=== PATIENT | female | born 1950 | race Caucasian/White ===

== ENCOUNTER → 2018-11-28 12:04 | Outpatient (CLI) | payer MEDICARE, OTHER ==
[~2018-11-28 12:04] MED LIST: GLUCOPHAGE XR750 MG PO; IPRAT-ALBUT 0.5-3 ML UPD; LEVOFLOXACIN500 MG PO; METHADONE10 MG/5 ML PO; MUCINEX DM ER1 EAC1 PO; NEURONTIN 300300 MG PO; PRAVACHOL20 MG PO; PROTONIX40 MG PO; TESSALON PERLE100 MG PO; TOPROL XL50 MG PO; TRIAMTERENE-HC1 EAC3 PO; [UNRECOGNIZED DRUG - OTHER]
== END | disposition home or self-care (01) ==
LOC: D.RAD 12:04
PROVIDERS: ATTEND Nurse Practitioner Family
DX: R05 Cough (principal); R06.02 Shortness of breath

== ENCOUNTER 2018-11-28 14:55 | Inpatient (IN) | payer MEDICARE, OTHER ==
[~2018-11-28] VITALS: Ht 165.1 cm; Wt 89.6 kg
[2018-11-28] MEDS ORDERED: TOPROL XL50 MG PO (14:59)
[2018-11-28] MEDS ORDERED: TRIAMTERENE-HC1 EAC3 PO (15:00)
[2018-11-28] MEDS ORDERED: METHADONE10 MG/5 ML PO (15:00)
[2018-11-28] MEDS ORDERED: PRAVACHOL20 MG PO (15:00)
[2018-11-28] MEDS ORDERED: NEURONTIN 300300 MG PO (15:01)
[2018-11-28] MEDS ORDERED: [UNRECOGNIZED DRUG - OTHER] (15:01)
--- NOTE | 2018-11-28 16:00 | NUR ---
TIME OUT PERFORMED WITH MD, PATIENT, MERCHANT PATROLLER, CHEST TUBE PLACEMENT RIGHT LUNG AT 1600. 32 FR TUBE PLACED TO RIGHT CHEST AREA BY DR SYKES. PATIENT TOLERATED WELL. VITAL SIGNS STABLE PRE, DURING, AND POST PROCEDURE. DRESSING APPLIED TO CHEST TUBE INSERTION SITE, SUTURES IN PLACE. NO ACTIVE BLEEDING. CXR PERFORMED WITH MD REVIEW. ORDER FOR LOW SUCTION.
--- NOTE | 2018-11-28 16:15 | NUR ---
PREPARING FOR CONSCIOUS SEDATION. CONSENT SIGNED AND WITNESSED. SEE PAPER CHART/LOG.
[2018-11-28 16:55] LABS: BASOPHILS 0.2 % (0-2); EOSINOPHILS 3.5 % (0-7); HEMATOCRIT 44.3 % (36.0-48.0); HEMOGLOBIN 15.1 g/dL (12-16); IMMATURE GRANULOCYTES 0.1 % (0-5); LYMPHOCYTES 19.8 % (15-50); MCH 29.7 pg (26.0-34.0); MCHC 34.1 g/dL (31.0-37.0); MEAN PLATELET VOLUME 11.3 fL (7.4-10.4); MONOCYTES 8.5 % (2-11); NEUTROPHILS 67.9 % (40-80); PLATELET COUNT 242 10x3/uL (130-400); RBC 5.09 10x6/uL (4.00-5.40); RDW 13.8 % (11.5-14.5); WBC 8.4 10x3/uL (4.8-10.8)
--- NOTE | 2018-11-28 16:57 | NUR ---
1618, BENADRYL 50 MG IV GIVEN X 1, 1620 ZOFRAN 8 MG IV X 1, 1622 VERSED 2 MG IV X 1, AND 1625 MORPHINE 4MG X 1 ADMINISTERED BY Adriana REGAN RN. PATIENT TOLERATED WELL. VITAL SIGNS STABLE THROUGHOUT PROCEDURE.
[2018-11-28 17:04] LABS: APTT 30.1 SECONDS (22.8-39.4); INR 0.92 (0.85-1.17); PROTIME 11.9 SECONDS (11.6-15.0)
[2018-11-28 17:10] LABS: ALKALINE PHOSPHATASE 77 U/L (46-116); ALT (SGPT) 22 U/L (10-68); BILIRUBIN - TOTAL 0.72 mg/dL (0.2-1.3); CALC OSMOLALITY 279 mosm/kg (275-300); CALCIUM 9.9 mg/dL (8.5-10.1); CARBON DIOXIDE 28.6 mmol/L (21.0-32.0); CHLORIDE - SERUM 102 mmol/L (98-107); CREATININE - SERUM 0.7 mg/dL (0.6-1.3); GLUCOSE 82 mg/dL (74-106); PROTEIN - SERUM 8.1 g/dL (6.4-8.2); SODIUM 139 mmol/L (136-145); UREA NITROGEN 21 mg/dL (7-18); eGFR NON AFRICAN AMERICAN 88 mL/min (90-120)
--- NOTE | 2018-11-28 19:06 | NUR ---
SBAR BEDSIDE REPORT REC'D FROM TOR VILLARREAL. PT RESTING QUIETLY WITH EYES OPEN. DENIES NEEDS AT THIS TIME. RESPIRATIONS SHALLOW AND EVEN, UNLABORED. AT BEDSIDE. BED IN LOWEST POSTION, CALL LIGHT IN REACH, CHEST TUBE ON LOW SUCTION.
[2018-11-28 20:30] VITALS: BP 114/70
--- NOTE | 2018-11-28 20:30 | NUR ---
PT RECIEVED VIA STRETCHER, A/OX4, VOICES NEEDS, LUNGS CLEAR, RIGHT CHEST TUBE INTACT PLACED TO SUCTION, LEFT PIV INTACT ANS SL, C/O BACK PAIN, ASSESSMENT COMPLETED
[2018-11-28 21:00] VITALS: BP 114/106
[2018-11-28] MEDS ORDERED: GLUCOPHAGE XR750 MG PO (21:14)
[2018-11-28 21:38] VITALS: BP 108/74; BMI 29.9
[2018-11-28 22:00] VITALS: BP 115/77
--- NOTE | 2018-11-28 22:40 | NUR ---
PT AROUSES EASILY, REFUSED SLATER PLACEMENT
[2018-11-28 23:00] VITALS: BP 120/69
[2018-11-29] VITALS (25 sets, daily range): BP systolic 91–167; BP diastolic 60–105
--- NOTE | 2018-11-29 00:38 | NUR ---
PT SLEEPING HEAVILY, AROUSES EASILY BUT DRIFTS BACK TO SLEEP QUICKLY, HR INCREASED TO 120'S, SPO2 70%, AROUSED AND ENCOURAGED TO TAKE DEEP BREATHS, HOB ELEVATED TO 45 DEGREES, PLACED ON HFNC 9 LITERS, SPO2 93%, HR DOWN TO 80'S, WILL CONT TO MONITOR
--- NOTE | 2018-11-29 01:35 | NUR ---
PT SLEEPING SOUNDLY, HOB @ 60 DEGREES, AROUSES BRIEFLY TO STIMULI, VITALS STABLE
--- NOTE | 2018-11-29 03:20 | NUR ---
PT SLEEPING WITHOUT DISTRESS, REMAINS ON HFNC @ 9L, VITALS STABLE
[2018-11-29 04:34] LABS: HEMATOCRIT 44.5 % (36.0-48.0); HEMOGLOBIN 14.5 g/dL (12-16); MCH 29.4 pg (26.0-34.0); MCHC 32.6 g/dL (31.0-37.0); MCV 90.1 fL (80.0-100.0); MEAN PLATELET VOLUME 10.8 fL (7.4-10.4); PLATELET COUNT 230 10x3/uL (130-400); RBC 4.94 10x6/uL (4.00-5.40); RDW 13.8 % (11.5-14.5); WBC 20.3 10x3/uL (4.8-10.8)
[2018-11-29 05:01] LABS: LYMPHOCYTES 3 % (15-50); MONOCYTES 4 % (2-11); NEUTROPHILS 89 % (40-80); PLATELET ESTIMATE NORMAL
[2018-11-29 05:02] LABS: ANION GAP 15.4 mmol/L (8-16); BILIRUBIN - TOTAL 0.56 mg/dL (0.2-1.3); CALCIUM 9.5 mg/dL (8.5-10.1); CARBON DIOXIDE 31.5 mmol/L (21.0-32.0); MAGNESIUM - SERUM 2.2 mg/dL (1.8-2.4); PHOSPHOROUS 5.6 mg/dL (2.5-4.9); POTASSIUM - SERUM 4.9 mmol/L (3.5-5.1)
[2018-11-29 05:03] LABS: CREATININE - SERUM 1.2 mg/dL (0.6-1.3)
--- NOTE | 2018-11-29 05:30 | NUR ---
PT AROUSES EASILY, DOES NOT REMEMBER BEING AWAKEN DURING THE NIGHT, O2 @ 3L HFNC, SPO2-96%, VITALS STABLE
--- NOTE | 2018-11-29 07:00 | NUR ---
shift report from paul. santa is alert and oriented. denies needs at this time. vss. bed low and locked. yvon light within reach.
--- NOTE | 2018-11-29 08:56 | NUR ---
PATIENT SLEEPING. EASILY AROUSED. NO DISTRESS NOTED. PATIENT SPO2 IS 85%. PATIENT IS MOUTH BREATHER. INSTRUCTED PATIENT ON BREATHING THROUGH THE NOSE. SPO2 INCREASED. 3L NC. SPO2 INCREASED TO 94%. WILL CONTINUE TO MONITOR.
--- NOTE | 2018-11-29 10:25 | NUR ---
ORAL CARE PROVIDED AT THIS TIME.
--- NOTE | 2018-11-29 10:44 | NUR ---
PATIENT IS EXPERIENCING EXPRIRATORY WHEEZES. VITAL SIGNS ARE STABLE AT THIS TIME ON 3L NC HIGH FLOW.
--- NOTE | 2018-11-29 13:45 | NUR ---
DR ROGERS AT BEDSIDE. CHEST TUBE PULLED 6 INCHES. NEW DRESSING APPLIED.
--- NOTE | 2018-11-29 13:56 | NUR ---
PATIENT IS MORE LETHARGIC THAN THIS MORNING. EXPIRATORY WHEEZES. DR GARCIA NOTIFIED BY TELEPHONE.
--- NOTE | 2018-11-29 13:58 | NUR ---
PATIENT IS ORIENTED WHEN AROUSED FOR HER SLEEP. VENTI MASK. VITAL SIGNS ARE STABLE AT THE MOMENT. REMINDING PATIENT TO BREATHE THROUGH HER NOSE. CHEST XRAY DONE AT THIS TIME. WILL CONTINUE TO MONITOR.
--- NOTE | 2018-11-29 14:01 | NUR ---
COMPLETE LINEN CHANGE AND CHG BATH DONE AT THIS TIME.
[2018-11-29 15:05] LABS: APPEARANCE CLEAR (CLEAR); BILIRUBIN NEGATIVE (NEGATIVE); COLOR YELLOW (YELLOW); GLUCOSE NEGATIVE (NEGATIVE); KETONE NEGATIVE (NEGATIVE); NITRITE POSITIVE (NEGATIVE); PROTEIN TRACE mg/dL (NEGATIVE); SPECIFIC GRAVITY 1.025 (1.005-1.020); UROBILINOGEN NORMAL (NORMAL)
--- NOTE | 2018-11-29 15:15 | NUR ---
PATIENT RESTING AT THIS TIME. EASILY AROUSED. ALERT AND ORIENTED. PATIENT TURNED TO OPPOSITE SIDE OF CHEST TUBE. NO DISTRESS NOTED. REASSESSMENT COMPLETED. FAMILY IS AT BEDSIDE DURING THIS TIME. WILL CONTINUE TO MONITOR.
[2018-11-29 15:16] LABS: EPITHELIAL CELLS 0-5 /hpf (0-5); RED CELLS - URINE OCC /hpf (0-5); WHITE CELLS - URINE 0-5 /hpf (0-5)
[2018-11-29 15:17] LABS: BACTERIA FEW /hpf (NONE SEEN)
--- NOTE | 2018-11-29 17:30 | NUR ---
patient eating dinner. family at bedside. denies needs at this time. patient is alert and oriented. venti mask 40% SPO2 95%. vss. no distress noted. will continue to monitor
--- NOTE | 2018-11-29 19:15 | NUR ---
RECEIVED CARE OF PT, ASSESSMENT PER FLOWSHEET. HR SR ON MONITOR, PPP, RT CHEST TUBE TO 20 CM OF SXN, NO AIR LEAK NOTED, DRAINING WELL, SLATER CATH PATENT, DENIES ANY NEEDS AT THIS TIME.
--- NOTE | 2018-11-29 20:52 | MORECARE ---
CASE MANAGEMENT DISCHARGE SUMMARY PATIENT: HAYLEY IRBY UNIT: [id number] ADM DATE: 11/28/18 AGE: 68 : 49 SEX: F ROOM/BED: D.2306 AUTHOR: SB HE PHYSICIAN: REFERRING PHYSICIAN: KENYA DE LA ROSA MD DATE OF SERVICE: 11/29/18 Discharge Plan Patient Name: HAYLEY IRBY Facility: [facility]:[place] : 1950 Planned Disposition: Home Anticipated Discharge Date: Discharge Date: Expected LOS: Initial Reviewer: [email or web address] Initial Review Date: 11/29/2018 Generated: 11/29/18 9:52 pm DCPIA - Discharge Planning Initial Assessment Updated by [email or web address]: Donya Lester on 11/29/18 8:51 pm * Is the patient Alert and Oriented? Yes * How many steps to enter\exit or inside your home? * PCP CHRIS * Pharmacy [facility] * Preadmission Environment Home with Family * ADLs Independent * Other Equipment WALKER, CANE, CRUTCHES, BSC * List name and contact numbers for known caregivers / representatives who currently or will assist patient after discharge: MARCELLA IRBY - [facility]- [phone] * Verbal permission to speak to the caregivers and representatives has been obtained from the patient. Yes * Community resources currently utilized None * Additional services required to return to the preadmission environment? No * Can the patient safely return to the preadmission environment? Yes * Has this patient been hospitalized within the prior 30 days at any hospital? No Patient Name: HAYLEY IRBY Page [phone] at 2051 All edits/amendments must be made on the electronic document DICTATION DATE: 11/29/182051 TECHNICAL IMPLEMENTATION LEAD: JUNG 11/29/182051 RPT#: [id number] DC DATE: STATUS: ADM IN [facility] [address] [place] [address] END OF REPORT
--- NOTE | 2018-11-29 20:59 | MORECARE ---
CASE MANAGEMENT DISCHARGE SUMMARY PATIENT: HAYLEY IRBY UNIT: [id number] ADM DATE: 11/28/18 AGE: 68 : 49 SEX: F ROOM/BED: D.2306 AUTHOR: YING,DOC PHYSICIAN: REFERRING PHYSICIAN: KENYA DE LA ROSA MD DATE OF SERVICE: 11/29/18 Discharge Plan Patient Name: HAYLEY IRBY Facility: [facility]:[place] : 1950 Planned Disposition: Home Anticipated Discharge Date: Discharge Date: Expected LOS: Initial Reviewer: [email or web address] Initial Review Date: 11/29/2018 Generated: 11/29/18 9:59 pm Comments DCP- Discharge Planning Updated by [email or web address]: Donya Lester on 11/29/18 7:[address] Patient Name: HAYLEY IRBY Admission Status: ER Accout number: [id number] Admission Date: 11-28-2018 : 1950 Admission Diagnosis:PNEUMOTHORAX, UNSPECIFIED Attending: KENYA DE LA ROSA Current LOS: 1 Anticipated DC Date: Planned Disposition: Home Primary Insurance: MEDICARE A & B Discharge Planning Comments: CM met with patient at bedside after explaining CM role and obtaining verbal consent. Patient lives at home with her Marcella where she is independent with her care and plans to return there upon discharge. Patient feels this would be a safe discharge. CM discussed availability / needs of home health and medical equipment. Patient denies any discharge needs at this time. Patient states she will have her family drive her home upon discharge. CM will continue to follow and assist as needed with discharge planning / needs. Cable Ferryboat Operator: Donya Lester DCPIA - Discharge Planning Initial Assessment Updated by [email or web address]: Donya Lester on 11/29/18 8:51 pm * Is the patient Alert and Oriented? Yes * How many steps to enter\exit or inside your home? * PCP CHRIS * Pharmacy [facility] * Preadmission Environment Home with Family * ADLs Independent * Other Equipment WALKER, CANE, CRUTCHES, BSC * List name and contact numbers for known caregivers / representatives who currently or will assist patient after discharge: MARCELLA IRBY - [facility]- [phone] * Verbal permission to speak to the caregivers and representatives has been obtained from the patient. Yes * Community resources currently utilized None * Additional services required to return to the preadmission environment? No * Can the patient safely return to the preadmission environment? Yes * Has this patient been hospitalized within the prior 30 days at any hospital? No Last DP export: 11/29/18 7:52 p Patient Name: HAYLEY IRBY Page [phone] at 2058 All edits/amendments must be made on the electronic document DICTATION DATE: 11/29/182057 JUDGE'S CLERK: JUNG 11/29/182057 RPT#: [id number] DC DATE: STATUS: ADM IN [facility] [address] [place] [address] END OF REPORT
--- NOTE | 2018-11-29 21:40 | NUR ---
NO VISITORS PRESENT AT THIS TIME, DIET DRINK PROVIDED PER REQUEST, VSS.
--- NOTE | 2018-11-29 23:15 | NUR ---
REASSESSMENT PER FLOWSHEET, NO ACUTE CHANGES NOTED AT THIS TIME, POSITIONED FOR COMFORT SUPPORTED WITH PILLOWS.
[2018-11-30] VITALS (24 sets, daily range): BP systolic 95–130; BP diastolic 54–73
--- NOTE | 2018-11-30 01:41 | NUR ---
PT RESTING IN BED WITH EYES CLOSED, VSS, CONT POC.
[2018-11-30 04:39] LABS: BASOPHILS 0.1 % (0-2); EOSINOPHILS 0.8 % (0-7); HEMATOCRIT 36.9 % (36.0-48.0); HEMOGLOBIN 12.1 g/dL (12-16); IMMATURE GRANULOCYTES 0.4 % (0-5); LYMPHOCYTES 11.7 % (15-50); MCH 29.2 pg (26.0-34.0); MCHC 32.8 g/dL (31.0-37.0); MCV 89.1 fL (80.0-100.0); MEAN PLATELET VOLUME 10.7 fL (7.4-10.4); MONOCYTES 8.2 % (2-11); NEUTROPHILS 78.8 % (40-80); RBC 4.14 10x6/uL (4.00-5.40); RDW 13.6 % (11.5-14.5)
[2018-11-30 04:45] LABS: CALC OSMOLALITY 268 mosm/kg (275-300); CALCIUM 8.6 mg/dL (8.5-10.1); CARBON DIOXIDE 31.4 mmol/L (21.0-32.0); CHLORIDE - SERUM 98 mmol/L (98-107); GLUCOSE 118 mg/dL (74-106); MAGNESIUM - SERUM 1.9 mg/dL (1.8-2.4); POTASSIUM - SERUM 4.3 mmol/L (3.5-5.1); SODIUM 133 mmol/L (136-145); UREA NITROGEN 18 mg/dL (7-18); eGFR NON AFRICAN AMERICAN 75 mL/min (90-120)
[2018-11-30 04:47] LABS: CREATININE - SERUM 0.8 mg/dL (0.6-1.3); PHOSPHOROUS 2.5 mg/dL (2.5-4.9)
[2018-11-30 04:48] LABS: PLATELET COUNT 174 10x3/uL (130-400); WBC 10.3 10x3/uL (4.8-10.8)
--- NOTE | 2018-11-30 05:15 | NUR ---
PRN DILAUDID 0.5MG ADMINISTERED PER PT REQUEST/MD ORDER, WILL MONITOR FOR DESIRED EFFECT.
--- NOTE | 2018-11-30 07:48 | NUR ---
awakes easily to verbal stimuli skin warm and dry. chest tube right side to 20 cm suction drainage sersang. no air leak noted. rubio cath patent draining clear yellow urine. iv left wrist without redness or swelling infusing with 1/2ns at 50 ml hour. head of bed elevated 30 degrees states she has a migrant headache.
--- NOTE | 2018-11-30 09:00 | NUR ---
BREAKFAST SERVED ATE MOYA AND HALF A BISCUIT. ENCOURAGE TO FILL OUT MENU. AT BEDSIDE.
--- NOTE | 2018-11-30 10:40 | NUR ---
DR. MCLAUGHLIN HERE. SUCTION REMOVED FROM CHEST TUBE. NO AIR LEAK NOTED. NEW ORDERS NOTED
--- NOTE | 2018-11-30 11:00 | NUR ---
UP IN CHAIR AT BEDSIDE. TOLERATED FAIR. GAIT GOOD. NO AIR LEAK WITH CHEST TUBE
--- NOTE | 2018-11-30 11:00 | NUR ---
DR. GARCIA HERE. TALKED WITH PATIENT
--- NOTE | 2018-11-30 11:30 | NUR ---
FAMILY HERE UPDATE GIVEN
--- NOTE | 2018-11-30 12:00 | NUR ---
LUNCH SERVED ATE WELL. NO AIR LEAK NOTED WITH CHEST TUBE. DRESSING DRY AND INTACT. ON RIGHT SIDE.
--- NOTE | 2018-11-30 13:30 | NUR ---
DR. DE LA ROSA HERE TALKED WITH PATIENT
--- NOTE | 2018-11-30 14:42 | NUR ---
COMPLETE HIBCLENS BATH GIVEN WITH LINEN CHANGE. LEFT CHEST TUBE DRESSING CHANGED, SITE WITHOUT REDNESS OR DRAINAGE. NO AIR LEAK IN CHEST TUBE. WANTS SOMETHING FOR PAIN BUT NOT THE DILAUDID. DR. DE LA ROSA HERE ORDERS RECEIVED. NO SKIN BREAK DOWN NOTED. HEELS BRIDGED ON PILLOW. SCD REAPPLIED TO LOWER LEGS. PATIENT TOLERATED FAIR. IV PATENT WITHOUT REDNESS OR SWELLING. SLATER PATENT. SERSANG DRAINAGE FROM CHEST TUBE.
--- NOTE | 2018-11-30 16:00 | NUR ---
resting comfortably, here update given. no distress
--- NOTE | 2018-11-30 17:00 | NUR ---
diabetic diet served ate 100%. tolerated well. no distress.
--- NOTE | 2018-11-30 19:40 | NUR ---
RESUMED CARE OF PT, ASSESSMENT PER FLOWSHEET. PT ALERT AND ORIENTED X 4, HR SR ON CM, RT CT TO WATERSEAL, DRESSING CDI-NO AIR LEAK NOTED, PPP, SLATER CATH PATENT. POSITIONED SUPPORTED WITH PILLOWS, DENIES ANY NEEDS AT THIS TIME, CALL LIGHT IN REACH, BED LOW.
--- NOTE | 2018-11-30 20:51 | NUR ---
PT C/O INCISIONAL PAIN, PRN PO NORCO 5 ADMINISTERED PER PT REQUEST/MD ORDER ALONG WITH HS MEDS.
--- NOTE | 2018-11-30 23:10 | NUR ---
FAN PROVIDED TO PT PER REQUEST, DENIES ANY OTHER NEEDS AT THIS TIME.
[2018-12-01] VITALS (14 sets, daily range): BP systolic 99–138; BP diastolic 56–86
--- NOTE | 2018-12-01 01:16 | NUR ---
PT RESTING IN BED WITH EYES CLOSED, VSS, CONT POC.
[2018-12-01 03:35] LABS: BASOPHILS 0.2 % (0-2); EOSINOPHILS 2.6 % (0-7); HEMATOCRIT 35.9 % (36.0-48.0); HEMOGLOBIN 11.8 g/dL (12-16); IMMATURE GRANULOCYTES 0.2 % (0-5); LYMPHOCYTES 13.5 % (15-50); MCH 29.1 pg (26.0-34.0); MCHC 32.9 g/dL (31.0-37.0); MCV 88.6 fL (80.0-100.0); MEAN PLATELET VOLUME 10.9 fL (7.4-10.4); MONOCYTES 8.2 % (2-11); NEUTROPHILS 75.3 % (40-80); PLATELET COUNT 165 10x3/uL (130-400); RBC 4.05 10x6/uL (4.00-5.40); RDW 13.7 % (11.5-14.5); WBC 9.1 10x3/uL (4.8-10.8)
[2018-12-01 03:48] LABS: CALC OSMOLALITY 279 mosm/kg (275-300); CALCIUM 8.5 mg/dL (8.5-10.1); CARBON DIOXIDE 31.6 mmol/L (21.0-32.0); CHLORIDE - SERUM 101 mmol/L (98-107); CREATININE - SERUM 0.7 mg/dL (0.6-1.3); GLUCOSE 109 mg/dL (74-106); PHOSPHOROUS 2.3 mg/dL (2.5-4.9); POTASSIUM - SERUM 4.3 mmol/L (3.5-5.1); SODIUM 140 mmol/L (136-145); eGFR NON AFRICAN AMERICAN 88 mL/min (90-120)
[2018-12-01 03:51] LABS: UREA NITROGEN 13 mg/dL (7-18)
--- NOTE | 2018-12-01 05:50 | NUR ---
ASSISTED PT WITH BRUSHING TEETH, ABLE TO PROVIDE OWN ORAL CARE, DENIES ANY OTHER NEEDS AT THIS TIME, VSS.
--- NOTE | 2018-12-01 07:37 | NUR ---
REPORT RECIEVED. REPLACING PHOSPHERUS. PATIENT IN CHAIR. BM THIS MORNING. ALERT AND ORIENTED. VSS. CALL LIGHT WITHIN REACH. PRVIDED WARM BLANKET. 4 L HIGH FLOW. NO DISTRESS NOTED. NO NEEDS AT THIS TIME.
--- NOTE | 2018-12-01 09:15 | NUR ---
PATIENT IN CHAIR. FAMILY AT BEDSIDE. PATIENT IS RESTING AND EASILY AROUSED. VSS. HR IS 55. HELD METOPROPOLOL. NO DISTRESS NOTED. DENIES NEEDS AT THIS TIME. WILL CONTINUE TO MONITOR.
--- NOTE | 2018-12-01 10:35 | NUR ---
DR MCLAUGHLIN PULLED OUT CHEST TUBE.
--- NOTE | 2018-12-01 10:48 | NUR ---
BRITTNEY'Ese SLATER AT THIS TIME
--- NOTE | 2018-12-01 11:45 | NUR ---
DR GARCIA AT BEDSIDE. UPDATE GIVEN.
--- NOTE | 2018-12-01 13:33 | NUR ---
FAMILY AT BEDSIDE. NO DISTRESS NOTED. PATIENT ON SIDE OF THE BED. ROOM AIR. 96%. WILL CONTINUE TO MONITOR.
--- NOTE | 2018-12-01 15:29 | NUR ---
PATIENT ON SIDE OF BED. ALERT AND ORIENTED. NO CHANGES.
--- NOTE | 2018-12-01 16:46 | NUR ---
gave report to michelle mackenzie.
--- NOTE | 2018-12-01 17:15 | NUR ---
PT RECEIVED TO ROOM. RESP EVEN AND UNLABORED WITH PULSE OX 92%. EATING ON SIDE OF BED AT THIS TIME. ENCOURAGED TO USE CALL LIGHT FOR ASSIST.
--- NOTE | 2018-12-01 19:35 | NUR ---
PT SITTING UP IN BED WITHOUT DISTRESS, ALERT AND ORIENTED. IV LEFT WRIST INFUSING 1/2NS @ 50. DRESSING RIGHT SIDE OF CHEST CDI. PT UP TO BATHROOM BY SELF TO VOID WITHOUT DIFFICULTY. DENIES NEEDS AT THIS TIME. CL IN REACH, WILL CTM
--- NOTE | 2018-12-01 22:30 | NUR ---
PT STATES INCISIONAL PAIN WHERE CHEST TUBE WAS 8/10. GAVE NORCO ORDERED. IV LEFT WRIST SLIGHTLY SWOLLEN AND PT STATES IT IS TENDER. REMOVED WITH CATHETER TIP INTACT. RESITED X1 ATTEMPT 20G RIGHT FA. DENIES OTHER NEED. CL IN REACH, WILL CTM
[2018-12-02] VITALS: BP 107/47
[2018-12-02 04:00] VITALS: BP 105/69
[2018-12-02 05:30] LABS: BASOPHILS 0.5 % (0-2); EOSINOPHILS 4.8 % (0-7); HEMATOCRIT 33.8 % (36.0-48.0); HEMOGLOBIN 11.3 g/dL (12-16); IMMATURE GRANULOCYTES 0.3 % (0-5); LYMPHOCYTES 16.2 % (15-50); MCH 29.1 pg (26.0-34.0); MCHC 33.4 g/dL (31.0-37.0); MCV 87.1 fL (80.0-100.0); MEAN PLATELET VOLUME 10.8 fL (7.4-10.4); MONOCYTES 7.8 % (2-11); NEUTROPHILS 70.4 % (40-80); PLATELET COUNT 178 10x3/uL (130-400); RBC 3.88 10x6/uL (4.00-5.40); RDW 13.9 % (11.5-14.5)
[2018-12-02 05:43] LABS: WBC 6.7 10x3/uL (4.8-10.8)
[2018-12-02 05:53] LABS: CALC OSMOLALITY 279 mosm/kg (275-300); CALCIUM 8.3 mg/dL (8.5-10.1); CARBON DIOXIDE 28.3 mmol/L (21.0-32.0); CHLORIDE - SERUM 105 mmol/L (98-107); CREATININE - SERUM 0.7 mg/dL (0.6-1.3); GLUCOSE 101 mg/dL (74-106); MAGNESIUM - SERUM 1.9 mg/dL (1.8-2.4); PHOSPHOROUS 2.7 mg/dL (2.5-4.9); POTASSIUM - SERUM 3.8 mmol/L (3.5-5.1); SODIUM 141 mmol/L (136-145); UREA NITROGEN 11 mg/dL (7-18); eGFR NON AFRICAN AMERICAN 88 mL/min (90-120)
--- NOTE | 2018-12-02 07:38 | NUR ---
ALERT AND ORIENTED, RESTING IN BED. DRESSING TO RIGHT SIDE, CHEST TUBE REMOVED YESTERDAY. DRESSING C/D/I. ON ELECTROLYTE PROTOCOL. LLL AND RLL DIMINISHED. IV TO RIGHT FOREARM, NS INFUSING @ 50ML/HR. SITE PATENT WITHOUT REDNESS OR SWELLING. ON TELEMETRY 63 SR. PT ACHS. NO C/O PAIN. NO S/S OF ACUTE DISTRESS NOTED. PT DENIES ANY NEEDS AT THIS TIME. CALL LIGHT IN REACH. WILL CONTINUE TO MONITOR.
[2018-12-02 08:05] VITALS: BP 122/74
--- NOTE | 2018-12-02 11:14 | NUR ---
Nutrition follow-up: Diet: consistent CHO PO Intake ~60% average of last 5 meals Labs reviewed Just out of ICU +BM Wt: 197# RDN following.
[2018-12-02 12:42] VITALS: BP 122/68
[2018-12-02 17:16] VITALS: BP 133/75
--- NOTE | 2018-12-02 17:44 | NUR ---
I have reviewed this patient and I concur with the Shift Assessment completed by the Licensed Practical Nurse today this shift.
--- NOTE | 2018-12-02 18:42 | NUR ---
ALERT AND ORIENTED, SITTING UP ON THE SIDE OF THE BED VISITING WITH FRIEND. NO C/O PAIN. NO S/S OF ACUTE DISTRESS NOTED. PT DENIES ANY NEEDS. CALL LIGHT IN REACH. WILL CONTINUE TO MONITOR.
--- NOTE | 2018-12-02 19:35 | NUR ---
SITTING UP ON SIDE OF BED. ALERT AND ORIENTED X4. RESP NONLABORED. REPORTS NONPROD COUGH. BBS CTA BUT DIMINISHED IN BLL. TELEMETRY SHOWS SR WITH RATE OF 67. 1+ EDEMA NOTED TO BLE. DRSG NOTED TO RT CHEST/SIDE IS INTACT. DENIES PAIN. AMBULATORY. NO DISTRESS. 1/2 NS @ 50 ML/HR INFUSING IN RT FOREARM WITHOUT DIFF. REFUSED TO WEAR SCDS. SR ELEVATED X2. CL IN REACH.
[2018-12-02 19:48] VITALS: BP 112/59
[2018-12-03 00:59] VITALS: BP 123/62
--- NOTE | 2018-12-03 02:13 | NUR ---
MEDICATED WITH TYLENOL FOR C/O H/A. CL IN REACH.
[2018-12-03 05:08] VITALS: BP 115/51
[2018-12-03 06:01] LABS: BASOPHILS 0.2 % (0-2); EOSINOPHILS 5.1 % (0-7); HEMATOCRIT 34.4 % (36.0-48.0); HEMOGLOBIN 11.4 g/dL (12-16); IMMATURE GRANULOCYTES 0.2 % (0-5); LYMPHOCYTES 18.1 % (15-50); MCH 29.1 pg (26.0-34.0); MCHC 33.1 g/dL (31.0-37.0); MCV 87.8 fL (80.0-100.0); MEAN PLATELET VOLUME 10.7 fL (7.4-10.4); MONOCYTES 7.7 % (2-11); NEUTROPHILS 68.7 % (40-80); PLATELET COUNT 188 10x3/uL (130-400); RBC 3.92 10x6/uL (4.00-5.40); RDW 14.2 % (11.5-14.5); WBC 6.6 10x3/uL (4.8-10.8)
[2018-12-03 06:22] LABS: ANION GAP 11.6 mmol/L (8-16); CALCIUM 8.2 mg/dL (8.5-10.1); PHOSPHOROUS 3.3 mg/dL (2.5-4.9); POTASSIUM - SERUM 3.6 mmol/L (3.5-5.1)
[2018-12-03 06:27] LABS: CREATININE - SERUM 0.9 mg/dL (0.6-1.3)
--- NOTE | 2018-12-03 06:55 | NUR ---
RESTING IN BED, EYES CLOSED. RESPIRATIONS EVEN AND UNLABORED. NO C/O PAIN. NO S/S OF ACUTE DISTRESS NOTED. PT DENIES ANY NEEDS AT THIS TIME. CALL LIGHT IN REACH. WILL CONTINUE TO MONITOR.
[2018-12-03 08:04] VITALS: BP 119/60
--- NOTE | 2018-12-03 11:20 | NUR ---
FAMILY AT BEDSIDE. PT IS WITHOUT NEEDS.
[2018-12-03 12:36] VITALS: BP 138/67
[2018-12-03 16:25] VITALS: BP 123/66
--- NOTE | 2018-12-03 18:19 | NUR ---
ALERT AND ORIENTED, SITTING UP IN CHAIR. NO C/O PAIN. NO S/S OF ACUTE DISTRESS NOTED. PT DENIES ANY NEEDS AT THIS TIME. CALL LIGHT IN REACH. WILL CONTINUE TO MONITOR.
[2018-12-03 20:14] VITALS: BP 163/56
[2018-12-04 04:35] VITALS: BP 110/52
[2018-12-04 06:53] LABS: BASOPHILS 0.3 % (0-2); EOSINOPHILS 4.2 % (0-7); HEMOGLOBIN 11.7 g/dL (12-16); IMMATURE GRANULOCYTES 0.3 % (0-5); LYMPHOCYTES 16.4 % (15-50); MCH 28.6 pg (26.0-34.0); MCHC 32.5 g/dL (31.0-37.0); MEAN PLATELET VOLUME 10.7 fL (7.4-10.4); MONOCYTES 6.3 % (2-11); NEUTROPHILS 72.5 % (40-80); PLATELET COUNT 214 10x3/uL (130-400); RBC 4.09 10x6/uL (4.00-5.40); RDW 14.3 % (11.5-14.5); WBC 6.7 10x3/uL (4.8-10.8)
[2018-12-04 07:21] LABS: CALC OSMOLALITY 284 mosm/kg (275-300); CALCIUM 8.3 mg/dL (8.5-10.1); CARBON DIOXIDE 27.6 mmol/L (21.0-32.0); CHLORIDE - SERUM 108 mmol/L (98-107); CREATININE - SERUM 0.7 mg/dL (0.6-1.3); GLUCOSE 89 mg/dL (74-106); MAGNESIUM - SERUM 2.1 mg/dL (1.8-2.4); SODIUM 144 mmol/L (136-145); UREA NITROGEN 10 mg/dL (7-18); eGFR NON AFRICAN AMERICAN 88 mL/min (90-120)
[2018-12-04 07:22] LABS: POTASSIUM - SERUM 4.2 mmol/L (3.5-5.1)
--- NOTE | 2018-12-04 07:51 | NUR ---
PT IS RESTING IN BED WITH EYES OPEN. RESPIRATIONS ARE EVEN AND UNLABORED. PT DENIES PRESENCE OF DYSPNEA/SOB/DIZZINESS AT THIS TIME. PT IS ON ROOM AIR. PT REPORTS A OCCASIONAL NON PRODUCTIVE COUGH. SCDS ARE ON. BED IS IN THE LOWEST POSITION. CALL LIGHT AND BEDSIDE TABLE ARE WITHIN REACH. SIDE RAILS X 2. PT DENIES PRESENCE OF PAIN/N/V. PT DENIES FURTHER NEEDS. AT THIS TIME. WILL CONT TO MONITOR.
[2018-12-04 08:28] VITALS: BP 154/70
--- NOTE | 2018-12-04 10:39 | NUR ---
PT RESTINGI N BED WITH EYES CLOSED. RESPIRATIONS ARE EVEN AND UNLABORED. PT IS EASILY AROUSED WITH VERBAL STIMULATION. PULSE OX @ 95% ROOM AIR. PT DENIES PRESENCE OF PAIN/SOB/N/V/DIZZINESS. AT BEDSIDE WITH KALPESH VERDE. KALPESH VERDE TO NOTIFY DR GARCIA OF PT STATUS.
[2018-12-04 11:55] LABS: INR 1.03 (0.85-1.17)
[2018-12-04 11:56] LABS: APTT 31.8 SECONDS (22.8-39.4)
[2018-12-04 12:37] VITALS: BP 137/74
[2018-12-04 16:45] VITALS: BP 134/57
--- NOTE | 2018-12-04 17:40 | NUR ---
CONSENTS FOR CHEST TUBE PLACEMENT SIGNED BY PT. PT DENIES QUESTIONS/CONCERNS RELATED TO PROCEDURE. PT INFORMED OF NPO AFTER MIDNIGHT. PT VERBALIZES UNDERSTANDING. ALL CONSENTS FOR PROCEDURE SIGNED AND PLACED IN PT CHART.
--- NOTE | 2018-12-04 19:45 | NUR ---
PT A/OX4, LUNGS CLEAR, O2 @ 50% VENIMASK, RIGHT PIV INTACT WITH 1/2 NS @ 50 CC/HR, NO C/O @ THIS TIME
[2018-12-04 20:47] VITALS: BP 124/66
[2018-12-05] VITALS (18 sets, daily range): BP systolic 89–135; BP diastolic 46–71; Ht 165.1 cm; Wt 89.6 kg
--- NOTE | 2018-12-05 07:20 | NUR ---
ALERT AND ORIENTED. LUNGS DIMINISHED BILATERALLY. HEART SOUNDS S1 AND S2 HEARD IN ALL JUÁREZ. TELEMETRY IN PLACE SINUS RYTHM. IV TO RIGHT HAND PATENT WITHOUT REDNESS. SKIN INTACT WITHOUT REDNESS. DENIES PAIN. DENIES NEEDS. VENTIMASK IN PLACE AT 50%. BED LOW. CALL VAZQUEZ AND PERSONAL ITEMS IN REACH. WILL CONTINUE TO MONITOR.
[2018-12-05 07:41] LABS: BASOPHILS 0.2 % (0-2); EOSINOPHILS 4.7 % (0-7); HEMATOCRIT 36.7 % (36.0-48.0); HEMOGLOBIN 11.8 g/dL (12-16); IMMATURE GRANULOCYTES 0.3 % (0-5); MCH 28.8 pg (26.0-34.0); MCHC 32.2 g/dL (31.0-37.0); MCV 89.5 fL (80.0-100.0); MEAN PLATELET VOLUME 10.1 fL (7.4-10.4); MONOCYTES 6.8 % (2-11); PLATELET COUNT 188 10x3/uL (130-400); RDW 14.1 % (11.5-14.5)
[2018-12-05 08:01] LABS: ALBUMIN 2.8 g/dL (3.4-5.0); ALKALINE PHOSPHATASE 65 U/L (46-116); ALT (SGPT) 26 U/L (10-68); BILIRUBIN - TOTAL 0.36 mg/dL (0.2-1.3); CALC OSMOLALITY 283 mosm/kg (275-300); CALCIUM 8.2 mg/dL (8.5-10.1); CARBON DIOXIDE 31.9 mmol/L (21.0-32.0); CHLORIDE - SERUM 108 mmol/L (98-107); CREATININE - SERUM 0.8 mg/dL (0.6-1.3); GLUCOSE 97 mg/dL (74-106); LDH 159 U/L (81-234); POTASSIUM - SERUM 4.7 mmol/L (3.5-5.1); PROTEIN - SERUM 5.6 g/dL (6.4-8.2); SODIUM 143 mmol/L (136-145); UREA NITROGEN 9 mg/dL (7-18); eGFR NON AFRICAN AMERICAN 75 mL/min (90-120)
[2018-12-05 08:03] LABS: INR 1.02 (0.85-1.17); PROTIME 12.9 SECONDS (11.6-15.0)
--- NOTE | 2018-12-05 10:32 | NUR ---
RESTING IN BED. DENIES PAIN. DENIES NEEDS. WILL CONTINUE TO MONITOR.
--- NOTE | 2018-12-05 12:10 | NUR ---
CONSENTS OBTAINED FOR PROCEDURE AND LINE PLACEMENT. DENIES FURTHER QUESTIONS.
--- NOTE | 2018-12-05 14:00 | NUR ---
PATIENT TAKEN FOR PROCEDURE.
--- NOTE | 2018-12-05 14:51 | NUR ---
NOTIFIED BY AQUACULTURE FARMER THAT PATIENT WILL GO TO CV ICU AFTER PROCEDURE.
--- NOTE | 2018-12-05 18:50 | NUR ---
RECEIVED PT FROM OR. CHEST TUBE TO RIGHT SIDE C NO AIR LEAK. CRITICORE SLATER IN PLACE. VENTI MASK ON 15 LITERS--LETHARGIC FROM O.R. SEDATION. PLASMALYTE INFUSING AT 30ML/HR--GIVING 500CC BOLUS FOR PRESSURE. NEOSYNEPHRINE AT 0.4MCG/KG/MIN. VSS ARE STABLIZED. WILL CHECK ORDERS AND MONITOR. HANDING OFF TO TOR MEDRANO.
--- NOTE | 2018-12-05 19:00 | NUR ---
ASSESSMENT COMPLETED. EYES CLOSED, OPENS EYES TO VERBAL STIMULI, ANSWERS QUESTIONS APPROPRIATELY. ON 100% NRB, O2 SAT 99%. RT DLIJ, DRSG C-D-I WITH NS@100CC/HR VIA PUMP, ZINACEF STARTED PER ORDERS. RT CT TO 20CM SUCTION WITH RED SEROUS DRAINAGE IN TUBING, DRSG C-D-I. CRITICORE SLATER INTACT WITH CLEAR YELLOW DRAINAGE. SCD'S INTACT. PPP. SB ON THE MONITOR. LT A-LINE ZERED AND CALIBRATED WITH GOOD WAVE FORM. CVP ZEROED AND CALIBRATED WITH GOOD WAVE FORM. DENIES ANY NEEDS AT THIS TIME. WILL CONT TO MONITOR.
--- NOTE | 2018-12-05 19:20 | NUR ---
FAMILY AT BEDSIDE. UPDATE GIVEN AND QUESTIONS ANSWERED.
--- NOTE | 2018-12-05 20:00 | NUR ---
NO CHANGES AT THIS TIME. SB ON THE MONITOR. DENIES ANY NEEDS. DENIES PAIN AT THIS TIME.
--- NOTE | 2018-12-05 23:02 | NUR ---
RT AT BEDSIDE. ABG'S OBTAINED. CHANGED FROM 100% NRB TO 12L HIGH FLOW. DENIES ANY PAIN OR NEEDS AT THIS TIME. WILL CONT TO MONITOR.
--- NOTE | 2018-12-05 23:16 | NUR ---
COMPLAINING OF NOSE BURNING. HUMIDITY ADDED TO HER HI FLOW. WILL CONT TO MONITOR.
[2018-12-06] VITALS (23 sets, daily range): BP systolic 84–129; BP diastolic 41–76
--- NOTE | 2018-12-06 00:47 | NUR ---
COMPLAINING OF BEING HUNGRY. TURKEY SANDWICH PROVIDED. DENIES ANY PAIN OR NEEDS AT THIS TIME.
[2018-12-06 02:14] LABS: APPEARANCE CLEAR (CLEAR); BILIRUBIN NEGATIVE (NEGATIVE); COLOR YELLOW (YELLOW); GLUCOSE NEGATIVE (NEGATIVE); KETONE NEGATIVE (NEGATIVE); NITRITE NEGATIVE (NEGATIVE); PROTEIN TRACE mg/dL (NEGATIVE); UROBILINOGEN NORMAL (NORMAL)
[2018-12-06 02:15] LABS: BACTERIA MODERATE /hpf (NONE SEEN); EPITHELIAL CELLS 0-5 /hpf (0-5); GRANULAR CAST OCC /lpf (NONE SEEN); HYALINE CAST 0-5 /lpf (NONE SEEN); MUCUS <1+ /lpf (NONE SEEN); RED CELLS - URINE 0-5 /hpf (0-5); WHITE CELLS - URINE 0-5 /hpf (0-5)
--- NOTE | 2018-12-06 03:00 | NUR ---
REASSESSMENT COMPLETE, SEE FLOWSHEET FOR ALL FINDINGS. PT AOX4, COOPERATIVE. DENIES PAIN, VSS. WEAK COUGH. REACHING 1000 X10 ON I/S. PT REPOSITIONED. DENIES FURTHER NEEDS, CALL LIGHT WITHIN PT REACH. CPOC.
--- NOTE | 2018-12-06 05:30 | NUR ---
CHG BATH PROVIDED, LINEN CHANGE COMPELTE. PT REPOSITIONED WITH PROMINENCES BRIDGED. COUGH/DB ENCOURAGED, WEAK COUGH. PT DENIES PAIN AT THIS TIME. CALL LIGHT WITHIN PT REACH. CPOC
[2018-12-06 06:23] LABS: BASOPHILS 0.1 % (0-2); EOSINOPHILS 0.1 % (0-7); HEMATOCRIT 34.5 % (36.0-48.0); HEMOGLOBIN 11.1 g/dL (12-16); IMMATURE GRANULOCYTES 0.3 % (0-5); LYMPHOCYTES 3.4 % (15-50); MCH 28.7 pg (26.0-34.0); MCHC 32.2 g/dL (31.0-37.0); MCV 89.1 fL (80.0-100.0); MEAN PLATELET VOLUME 10.2 fL (7.4-10.4); MONOCYTES 3.4 % (2-11); NEUTROPHILS 92.7 % (40-80); PLATELET COUNT 218 10x3/uL (130-400); RBC 3.87 10x6/uL (4.00-5.40); RDW 13.6 % (11.5-14.5)
[2018-12-06 06:43] LABS: WBC 10.7 10x3/uL (4.8-10.8)
[2018-12-06 06:59] LABS: ALBUMIN 2.6 g/dL (3.4-5.0); BILIRUBIN - TOTAL 0.46 mg/dL (0.2-1.3); CALCIUM 7.7 mg/dL (8.5-10.1); CARBON DIOXIDE 30.3 mmol/L (21.0-32.0); CREATININE - SERUM 0.9 mg/dL (0.6-1.3); POTASSIUM - SERUM 5.3 mmol/L (3.5-5.1); PROTEIN - SERUM 5.4 g/dL (6.4-8.2)
--- NOTE | 2018-12-06 08:43 | NUR ---
DR DELANEY HERE. PT OOB TO CHAIR. BREAKFAST TRAY SERVED. PT KATINA WELL.
--- NOTE | 2018-12-06 10:11 | MORECARE ---
CASE MANAGEMENT DISCHARGE SUMMARY PATIENT: HAYLEY IRBY UNIT: [id number] ADM DATE: 11/28/18 AGE: 68 : 49 SEX: F ROOM/BED: [facility] AUTHOR: YING,DOC PHYSICIAN: REFERRING PHYSICIAN: KENYA DE LA ROSA MD DATE OF SERVICE: 12/06/18 Discharge Plan Patient Name: HAYLEY IRBY Facility: [facility]:[place] : 1950 Planned Disposition: Home Anticipated Discharge Date: Discharge Date: Expected LOS: Initial Reviewer: [email or web address] Initial Review Date: 11/29/2018 Generated: 12/06/18 11:11 am DCP- Discharge Planning Updated by [email or web address]: Donya Lester on 11/29/18 7:[address] Patient Name: HAYLEY IRBY Admission Status: ER Accout number: [id number] Admission Date: 11-28-2018 : 1950 Admission Diagnosis:PNEUMOTHORAX, UNSPECIFIED Attending: KENYA DE LA ROSA Current LOS: 1 Anticipated DC Date: Planned Disposition: Home Primary Insurance: MEDICARE A & B Discharge Planning Comments: CM met with patient at bedside after explaining CM role and obtaining verbal consent. Patient lives at home with her Marcella where she is independent with her care and plans to return there upon discharge. Patient feels this would be a safe discharge. CM discussed availability / needs of home health and medical equipment. Patient denies any discharge needs at this time. Patient states she will have her family drive her home upon discharge. CM will continue to follow and assist as needed with discharge planning / needs. Latent Print Examiner: Donya Lester DCPIA - Discharge Planning Initial Assessment Updated by [email or web address]: Donya Lester on 11/29/18 8:51 pm * Is the patient Alert and Oriented? Yes * How many steps to enter\exit or inside your home? * PCP CHRIS * Pharmacy [facility] * Preadmission Environment Home with Family * ADLs Independent * Other Equipment WALKER, CANE, CRUTCHES, BSC * List name and contact numbers for known caregivers / representatives who currently or will assist patient after discharge: MARCELLA IRBY - [facility]- [phone] * Verbal permission to speak to the caregivers and representatives has been obtained from the patient. Yes * Community resources currently utilized None * Additional services required to return to the preadmission environment? No * Can the patient safely return to the preadmission environment? Yes * Has this patient been hospitalized within the prior 30 days at any hospital? No Last DP export: 11/29/18 7:59 p Patient Name: HAYLEY IRBY Page [id number] at 1011 All edits/amendments must be made on the electronic document DICTATION DATE: 12/06/18 1011 CLINICAL EDITOR: JUNG 12/06/18 1011 RPT#: [id number] DC DATE: STATUS: ADM IN [facility] [address] [place] [address] END OF REPORT
--- NOTE | 2018-12-06 11:21 | NUR ---
PT RESTING QUIETLY IN CHAIR.
--- NOTE | 2018-12-06 12:45 | NUR ---
Nutrition Follow-up: VATS on 12/05. Pt reports tolerating clear liquids this morning and is ready for solid food. Diet: Diabetic (advanced this AM) Wt: 185# Last BM: 12/05 per pt Labs noted: Glu 125, Ca 7.7, Alb 2.6, K+ 5.3 Meds reviewed Continue current diet as tolerated. RD following.
--- NOTE | 2018-12-06 13:59 | NUR ---
PT RESTING QUIETLY IN CHAIR. AWAKENS EASILY.
--- NOTE | 2018-12-06 14:31 | OP ---
PATIENT NAME: HAYLEY IRBY MEDICAL RECORD: [id number] :48 [facility]ATION[facility] ADMISSION DATE:11/28/18 SURGEON: MATT DELANEY MD DATE OF OPERATION: 12/05/2018 SURGEON: Matt Delaney MD ECONOMIC DEVELOPMENT COORDINATOR: Tony Quintero. OPERATION PERFORMED: Right thoracoscopy, resection of bulla, mechanical pleurodesis, and bronchoscopy. POSTOPERATIVE DIAGNOSIS: Spontaneous pneumothorax. POSTOPERATIVE DIAGNOSIS: Bullous emphysema with pneumothorax. ANESTHESIA: Double lumen, general endotracheal anesthesia. ESTIMATED BLOOD LOSS: Minimal. COMPLICATIONS: None. SPECIMENS: Bulla. CONDITION: Stable. DISPOSITION: CV ICU. OPERATIVE FINDINGS: 1. 800 cc of serosanguineous pleural effusion. 2. Bulla arising from the right middle lobe with no other bullous lesions or blebs at the apex superior segment of the right lower lobe. 3. Mechanical pleurodesis of the apex land lateral calvin and no air leak after closure of the chest. OPERATIVE INDICATION: Pneumothorax treated with chest tube and recurrent. DESCRIPTION OF PROCEDURE: The patient was brought to the operating suite. Double lumen general endotracheal anesthesia was obtained immediately. Ventilation of the left lung only was performed. The patient was turned in left lateral decubitus position with appropriate padding. The right chest was sterilely prepped and draped. Incision was made just immediately anterior to the tip of the scapula and the chest was entered. The lung was allowed to fall away. Visualizing around the chest, a few light adhesions were noted at the middle lobe and we encountered a bulla, which we grasped and held upwardly by working through 2 ports made posterior to the scapula. Then, we introduced the stapling device to staple the base of the bulla, inspected all of the tissue for air leak, performed a mechanical pleurodesis using electrocautery inside each of the ribs down to about the 8th rib level. Removed all the fluid, inspected the remainder of the lung. I placed a chest tube through an anterior site up to the apex and sutured it in place and then closed the working ports and camera port with muscle layer, subcutaneous, and subcuticular. The patient was ventilated with no air leak, bronchoscopy confirmed the position of the endotracheal tube. The patient to the CV ICU in stable condition. OPERATIVE REPORT [id number] HAYLEY IRBY TRANSINT:[id number] Voice Confirmation ID: [id number] DOCUMENT ID: [id number] MATT DELANEY MD at 1431 CC: KULWINDER GARCIA MD [id number] DICTATION DATE: 12/05/181751 SENIOR ENLISTED ADVISOR: 12/06/18 0204 ADM IN [facility] [address] [id number]
--- NOTE | 2018-12-06 15:51 | NUR ---
DR DELANEY HERE. DCD ART LINE AND DCD CVP AND SLATER ORDERED. REPORTED TO DR MONSIVAIS HR 48 TO 50. REC'D ORDERS TO HOLD LOPRESSOR.
--- NOTE | 2018-12-06 19:00 | NUR ---
SHIFT ASSESSMENT COMPLETE. VS STABLE. NO VISUAL CUES OF DISTRESS NOTED. WILL CONTINUE TO MONITOR.
[2018-12-07] VITALS (16 sets, daily range): BP systolic 81–137; BP diastolic 36–69
--- NOTE | 2018-12-07 05:00 | NUR ---
VS STABLE. NO VISUAL CUES OF DISTRESS NOTED. WILL MONITOR.
[2018-12-07 06:20] LABS: BASOPHILS 0.1 % (0-2); EOSINOPHILS 4.5 % (0-7); HEMATOCRIT 32.2 % (36.0-48.0); HEMOGLOBIN 10.4 g/dL (12-16); IMMATURE GRANULOCYTES 0.4 % (0-5); LYMPHOCYTES 9.4 % (15-50); MCH 28.7 pg (26.0-34.0); MCHC 32.3 g/dL (31.0-37.0); MEAN PLATELET VOLUME 10.2 fL (7.4-10.4); MONOCYTES 8.7 % (2-11); NEUTROPHILS 76.9 % (40-80); PLATELET COUNT 199 10x3/uL (130-400); RBC 3.62 10x6/uL (4.00-5.40); RDW 13.7 % (11.5-14.5)
[2018-12-07 06:45] LABS: ALBUMIN 2.5 g/dL (3.4-5.0); ALKALINE PHOSPHATASE 61 U/L (46-116); ALT (SGPT) 30 U/L (10-68); BILIRUBIN - TOTAL 0.31 mg/dL (0.2-1.3); CALC OSMOLALITY 281 mosm/kg (275-300); CALCIUM 7.6 mg/dL (8.5-10.1); CARBON DIOXIDE 30.1 mmol/L (21.0-32.0); CHLORIDE - SERUM 106 mmol/L (98-107); CREATININE - SERUM 0.6 mg/dL (0.6-1.3); GLUCOSE 113 mg/dL (74-106); POTASSIUM - SERUM 4.2 mmol/L (3.5-5.1); PROTEIN - SERUM 5.2 g/dL (6.4-8.2); SODIUM 141 mmol/L (136-145); UREA NITROGEN 13 mg/dL (7-18); eGFR NON AFRICAN AMERICAN > 90 mL/min (90-120)
--- NOTE | 2018-12-07 07:42 | NUR ---
ASST PT TO BATHROOM. PT VOIDS WITH OUT DIFFICULTY. BREAKFAST TRAY SERVED AND PT FEEDS SELF WITH OUT DIFFICULTY.
--- NOTE | 2018-12-07 13:56 | NUR ---
CT DCD BY DR DELANEY. PT KATINA WELL. PO TYLENOL GIVEN PRIOR TO PER PT REQUEST. DR GARCIA AT BS WELL. PT NOW RESTING QUIETLY.
--- NOTE | 2018-12-07 18:53 | NUR ---
PT 89% ON RA. TRENDS TO 94% WHILE UP TO CHAIR AND TALKING. REPORTED TO DR DE LA ROSA AND TIAGO SAWYER RE: DR MACARIO ORDERS TO F/U WITH MEDICAL IF NO PNEUMO/CXR. STILL AWAITING RESULTS OF CXR. TIAGO SAWYER STATES TO HOLD DC FOR NOW DUE TO NO RESULTS OF CXR AND TO MONITOR O2 ON RA WHILE AWAKE AND AT REST.
--- NOTE | 2018-12-07 19:30 | NUR ---
REPORT REC'D AND CARE ASSUMED, REC'D PT SITTING UP IN CHAIR WATCHING TV ON ROOM AIR, AWAKE, ALERT, AND ORIENTED X 4, RIJDL DRSG CDI BOTH PORTS SALINE LOCKED, RIGHT LATERAL INCISION DRSG CDI, RIGHT POSTERIOR INCISIONS WITH DRSG CDI, DRSG TO RIGHT LOWER LATERAL SIDE TO PREVIOUS CT SITE CDI, TRACE OF EDEMA NOTED TO LOWER EXT'S, PPP, PT REQUESTING PHENERGAN/CODIENE MEDICATION INFORMED PT IT WAS TOO EARLY TO BE GIVEN, VERBALIZES UNDERSTANDING, DENIES FURTHER NEEDS, CALL LIGHT IN REACH.
--- NOTE | 2018-12-07 20:40 | NUR ---
ASSISTED PT TO BATHROOM, GAIT STEADY, PT GOT SELF BACK TO RECLINER WITHOUT CALLING FOR ASSISTANCE, DENIES PAIN OR NEEDS, CALL LIGHT IN REACH.
--- NOTE | 2018-12-07 21:30 | NUR ---
EVENING MEDS GIVEN ORDERED, FSBS 111, NO COVERAGE REQUIRED, PHENERGAN AND CODIENE PROVIDED AT THIS TIME, WILL MONITOR FOR CHANGES.
--- NOTE | 2018-12-07 21:55 | NUR ---
PT ASSISTED TO BED WITHOUT DIFFICULTY, BLANKET PROVIDED ON REQUEST, PT RESTING ON LEFT SIDE, SR UP X 2 ,CALL LIGHT IN REACH.
--- NOTE | 2018-12-07 23:30 | NUR ---
REASSESSMENT COMPLETED, PT RESTING EYES CLOSED, RESP EVEN AND UNLABORED, VSS, WILL CONT TO MONITOR FOR CHANGES.
[2018-12-08] VITALS (13 sets, daily range): BP systolic 101–156; BP diastolic 46–73
--- NOTE | 2018-12-08 01:30 | NUR ---
PT O2 SAT DECREASED TO 83%, O2 INCREASED TO 3 LITERS HIGH FLOW, AWAKENS EASILY, O2 SAT INCREASED TO 93%, WILL CONT TO MONITOR FOR CHANGES.
--- NOTE | 2018-12-08 03:30 | NUR ---
REASSESSMENT COMPLETED, PT ASSISTED UP TO BATHROOM X 1 ASSIST, O2 SAT 98% WHILE UP, PT STATES " I DO HAVE SLEEP APENA, I HAVE ONE OF THOSE MACHINES BUT I CAN'T STAND THE MASK", PT ASSISTED BACK TO BED WITHOUT DIFFICULTY, VSS.
--- NOTE | 2018-12-08 05:55 | NUR ---
AM LAB DRAWN FROM CVL AND SENT TO LAB, PT RESTING IN BED EYES CLOSED, ATTEMPTED TO PULL PROTONIX DOSE, UNAVAILABLE IN PYXIS AT THIS TIME, PT DENIES NEEDS, SR UP X 2, CALL LIGHT IN REACH.
[2018-12-08 06:23] LABS: BASOPHILS 0.2 % (0-2); HEMATOCRIT 31.7 % (36.0-48.0); HEMOGLOBIN 10.1 g/dL (12-16); IMMATURE GRANULOCYTES 0.3 % (0-5); LYMPHOCYTES 15.8 % (15-50); MCH 28.7 pg (26.0-34.0); MCHC 31.9 g/dL (31.0-37.0); MCV 90.1 fL (80.0-100.0); MEAN PLATELET VOLUME 9.9 fL (7.4-10.4); MONOCYTES 9.6 % (2-11); NEUTROPHILS 69.1 % (40-80); PLATELET COUNT 208 10x3/uL (130-400); RBC 3.52 10x6/uL (4.00-5.40); RDW 14.2 % (11.5-14.5)
[2018-12-08 06:40] LABS: ALBUMIN 2.4 g/dL (3.4-5.0); ALKALINE PHOSPHATASE 58 U/L (46-116); ALT (SGPT) 22 U/L (10-68); CALC OSMOLALITY 287 mosm/kg (275-300); CALCIUM 7.9 mg/dL (8.5-10.1); CARBON DIOXIDE 32.1 mmol/L (21.0-32.0); CHLORIDE - SERUM 109 mmol/L (98-107); CREATININE - SERUM 0.6 mg/dL (0.6-1.3); GLUCOSE 97 mg/dL (74-106); POTASSIUM - SERUM 4.4 mmol/L (3.5-5.1); PROTEIN - SERUM 5.1 g/dL (6.4-8.2); SODIUM 145 mmol/L (136-145); UREA NITROGEN 9 mg/dL (7-18); eGFR NON AFRICAN AMERICAN > 90 mL/min (90-120)
--- NOTE | 2018-12-08 08:17 | NUR ---
PT UP TO CHAIR. AT BS. BREAKFAST TRAY SERVED AND PT EATING WITH OUT DIFFICULTY.
--- NOTE | 2018-12-08 08:30 | NUR ---
PT WITH COUGH, NON PRODUCTIVE. PO COUGH MEDS GIVEN.
--- NOTE | 2018-12-08 14:11 | NUR ---
1200- PT SPO2 DROPS WHEN TALKING AND WITH ACTIVITY. DR DELANEY AT BS. O2 2L NC PLACED. 1300- DR DELANEY ROUNDS AND DR DE LA ROSA AND DR GARCIA. RT EVAL WITH AND WITH OUT O2 AND WITH ACTIVITY. SPO2 DROPS TO 80% WHILE ASLEEP. DROPS TO 85% WITH ACTIVITY.
--- NOTE | 2018-12-08 15:44 | NUR ---
CHG BATH COMPLETE. PT KATINA WELL. WILL TRANSFER TO THE FLOOR ON MED [address] TO [facility] STAFF.
--- NOTE | 2018-12-08 17:05 | NUR ---
PT ARRIVED FROM CVICU ALET AND ORIENTED. UP AD CECILY WITHOUT ASSIST. NO COMPLAINTS/CONCERNS/QUESTIONS. FAMILY AT BEDSIDE.
--- NOTE | 2018-12-08 19:22 | NUR ---
PT SITTING UP IN BEDSIDE CHAIR ALERT AND ORIENTED X4. PT RR EVEN AND UNLABORED. VITALS STABLE. PT DENIES ANY PAIN OR FURTHER NEEDS. BED LOW CALL LIGHT WITHIN REACH. WILL CONTINUE TO MONITOR.
[2018-12-09 00:01] VITALS: BP 108/52
--- NOTE | 2018-12-09 02:11 | NUR ---
PT RESTING IN BED WITH EYES CLOSED RR EVEN AND UNLABORED. BED LOW CALL LIGHT WITHIN REACH. WILL CONTINUE TO MONITOR.
[2018-12-09 04:00] VITALS: BP 129/62
--- NOTE | 2018-12-09 05:45 | NUR ---
EMPTIED PT'S SLATER OUTPUT-500ML. URINE SMELLED FOUL AND IS THICK WITH DARK YELLOW/GREEN TENT. PT ALERT AND ORIENTED X4. RR EVEN AND UNLABORED. REQUEST FOR CEREAL FOR BREAKFAST PUT IN MEDITECH. NO S/S OF DISTRESS. VITALS STABLE. BED LOW CALL LIGHT WITHIN REACH. WILL CONTINUE TO MONITOR.
--- NOTE | 2018-12-09 05:49 | NUR ---
I have reviewed this patient and I concur with the Shift Assessment completed by the Licensed Practical Nurse today this shift.
--- NOTE | 2018-12-09 07:18 | NUR ---
PT RESTING PEACEFULLY LING ON LEFT SIDE WHEN I ENTERED. BREATHS EVEN, REGULAR, AND UNLABORED. NO SIGNS/SYMPTOMS OF ACUTE DISTRESS NOTED AT THIS TIME. CL IN REACH, SRX2.
[2018-12-09 08:47] VITALS: BP 135/64
--- NOTE | 2018-12-09 10:40 | NUR ---
PATIENT 84% ON RA AT REST PLACED BACK ON 2.5L/NC AND SP02 NOW 93%
--- NOTE | 2018-12-09 12:52 | MORECARE ---
CASE MANAGEMENT DISCHARGE SUMMARY PATIENT: HAYLEY IRBY UNIT: [id number] ADM DATE: 11/28/18 AGE: 68 : 49 SEX: F ROOM/BED: D.2111 AUTHOR: YING,DOC PHYSICIAN: REFERRING PHYSICIAN: KENYA DE LA ROSA MD DATE OF SERVICE: 12/09/18 Discharge Plan Patient Name: HAYLEY IRBY Facility: [facility]:[place] : 1950 Planned Disposition: Home Anticipated Discharge Date: 12/09/18 Discharge Date: Expected LOS: 11 Initial Reviewer: [email or web address] Initial Review Date: 11/29/2018 Generated: 12/09/18 1:52 pm DCP- Discharge Planning Updated by [email or web address]: Donya Lester on 11/29/18 7:[address] Patient Name: HAYLEY IRBY Admission Status: ER Accout number: [id number] Admission Date: 11-28-2018 : 1950 Admission Diagnosis:PNEUMOTHORAX, UNSPECIFIED Attending: KENYA DE LA ROSA Current LOS: 1 Anticipated DC Date: Planned Disposition: Home Primary Insurance: MEDICARE A & B Discharge Planning Comments: CM met with patient at bedside after explaining CM role and obtaining verbal consent. Patient lives at home with her Marcella where she is independent with her care and plans to return there upon discharge. Patient feels this would be a safe discharge. CM discussed availability / needs of home health and medical equipment. Patient denies any discharge needs at this time. Patient states she will have her family drive her home upon discharge. CM will continue to follow and assist as needed with discharge planning / needs. Lead Recreation Assistant: Donya Lester DCPIA - Discharge Planning Initial Assessment Updated by [email or web address]: Donya Lester on 11/29/18 8:51 pm * Is the patient Alert and Oriented? Yes * How many steps to enter\exit or inside your home? * PCP CH[facility]IS * [facility] * Preadmission Environment Home with Family * ADLs Independent * Other Equipment WALKER, CANE, CRUTCHES, BSC * List name and contact numbers for known caregivers / representatives who currently or will assist patient after discharge: MARCELLA IRBY - [facility]- [phone] * Verbal permission to speak to the caregivers and representatives has been obtained from the patient. Yes * Community resources currently utilized None * Additional services required to return to the preadmission environment? No * Can the patient safely return to the preadmission environment? Yes * Has this patient been hospitalized within the prior 30 days at any hospital? No External Providers External Provider: [facility] Next Contact Date: 12/09/2018 Service Request Date: Service Type: Resolution: Reviewer: Comments: Last DP export: 12/06/18 9:11 am Patient Name: HAYLEY IRBY Page [phone] at 1252 All edits/amendments must be made on the electronic document DICTATION DATE: 12/09/181251 COUNTER CONTROL OPERATOR: JUNG 12/09/18 1252 RPT#: [id number] DC DATE: STATUS: ADM IN [facility] [address] [place] [address] END OF REPORT
--- NOTE | 2018-12-09 13:15 | MORECARE ---
CASE MANAGEMENT DISCHARGE SUMMARY PATIENT: HAYLEY IRBY UNIT: [id number] ADM DATE: 11/28/18 AGE: 68 : 49 SEX: F ROOM/BED: D.2281 AUTHOR: YINGDOC PHYSICIAN: REFERRING PHYSICIAN: KENYA DE LA ROSA MD DATE OF SERVICE: 12/09/18 Discharge Plan Patient Name: AHYLEY IRBY Facility: [facility]:[place] : 1950 Planned Disposition: Home Anticipated Discharge Date: 12/09/18 Discharge Date: Expected LOS: 11 Initial Reviewer: [email or web address] Initial Review Date: 11/29/2018 Generated: 12/09/18 2:15 pm Comments DCP- Discharge Planning Updated by [email or web address]: Chaka Joyce on 12/09/18 12:[address] Patient Name: HAYLEY IRBY Admission Status: ER Accout number: [id number] Admission Date: 11-28-2018 : 1950 Admission Diagnosis:PNEUMOTHORAX, UNSPECIFIED Attending: KENYA DE LA ROSA Current LOS: 11 Anticipated DC Date: 12-09-2018 Planned Disposition: Home Primary Insurance: MEDICARE A & B PLANNED EXTERNAL PROVIDER: SILVINA Discharge Planning Comments: CM MET WITH PT IN ROOM TO DISCUSS DISCHARGE NEEDS AND PLANNING. CM DISCUSSED AVAILABILITY OF HOME HEALTH, REHAB SERVICES AND MEDICAL EQUIPMENT. PT WOULD LIKE OXYGEN AND NEBULIZER ORDERED, DENIES FURTHER DISCHARGE NEEDS. SPOUSE TO TRANSPORT HOME AT DISCHARGE. IMPORTANT MESSAGE FROM MEDICARE PROVIDED AND EXPLAINED. PROVIDER LISTING GIVEN FOR MEDICAL EQUIPMENT, PT HAS NO PREFERENCE ON PROVIDER, CHOICE SIGNED. CM CALLED [facility], , SPOKE TO ARASH AND PROVIDED REFERRAL INFORMATION FOR OXYGEN AND NEBULIZER. CM FAXED REFERRAL TO [facility], . ARASH ADVISED THEY WILL DELIVER PORTABLE OXYGEN TO HOSPITAL TODAY AND WILL ARRANGE HOME OXYGEN AND NEBULIZER WHEN PT ARRIVES AT HOME AFTER DISCHARGE. SENIOR INTERNATIONAL TAX MANAGER NURSE NOTIFIED. Bilingual Kindergarten Teacher: Chaka Joyce DCP- Discharge Planning Updated by [email or web address]: Donya Lester on 11/29/18 7:[address] Patient Name: HAYLEY IRBY Admission Status: ER Accout number: [id number] Admission Date: 11-28-2018 : 1950 Admission Diagnosis:PNEUMOTHORAX, UNSPECIFIED Attending: KENYA DE LA ROSA Current LOS: 1 Anticipated DC Date: Planned Disposition: Home Primary Insurance: MEDICARE A & B Discharge Planning Comments: CM met with patient at bedside after explaining CM role and obtaining verbal consent. Patient lives at home with her Marcella where she is independent with her care and plans to return there upon discharge. Patient feels this would be a safe discharge. CM discussed availability / needs of home health and medical equipment. Patient denies any discharge needs at this time. Patient states she will have her family drive her home upon discharge. CM will continue to follow and assist as needed with discharge planning / needs. Bilingual Kindergarten Teacher: Donya WEINBERG - Discharge Planning Initial Assessment Updated by [id number]: Donya Lester on 11/29/18 8:51 pm * Is the patient Alert and Oriented? Yes * How many steps to enter\exit or inside your home? * PCP [facility] * [facility] * Preadmission Environment Home with Family * ADLs Independent * Other Equipment WALKER, CANE, CRUTCHES, BSC * List name and contact numbers for known caregivers / representatives who currently or will assist patient after discharge: MARCELLA IRBY - [facility]- [phone] * Verbal permission to speak to the caregivers and representatives has been obtained from the patient. Yes * Community resources currently utilized None * Additional services required to return to the preadmission environment? No * Can the patient safely return to the preadmission environment? Yes * Has this patient been hospitalized within the prior 30 days at any hospital? No Coverage Notice Reviewer: [email or web address] Layla Joyce Notice Issued Date-Time: 12/09/2018 12:05 Notice Type: Patient Choice Letter Notice Delivered To: Patient Relationship to Patient: Special Library Librarian Name: Delivery Method: HAND - Hand Delivered Diamond Days: Prior Verbal Notification: Recipient Understood Notice: Yes Recipient Signature: Yes Med Rec Note Co-signed by Attending: Coverage Notice Comment: NO MEDICAL EQUIPMENT PROVIDER PREFERENCE Reviewer: [email or web address] Layla Joyce Notice Issued Date-Time: 12/09/2018 12:05 Notice Type: IM Discharge Notice Notice Delivered To: Patient Relationship to Patient: Special Library Librarian Name: Delivery Method: HAND - Hand Delivered Diamond Days: Prior Verbal Notification: Recipient Understood Notice: Yes Recipient Signature: Yes Med Rec Note Co-signed by Attending: Coverage Notice Comment: Last DP export: 12/09/18 11:52 am Patient Name: HAYLEY IRBY Page [phone] at 1315 All edits/amendments must be made on the electronic document DICTATION DATE: 12/09/18 1315 WEB MARKETING MANAGER: JUNG 12/09/18 1315 RPT#: [id number] DC DATE: STATUS: ADM IN [facility] [address] [place] [address] END OF REPORT
--- NOTE | 2018-12-09 13:24 | MORECARE ---
CASE MANAGEMENT DISCHARGE SUMMARY PATIENT: HAYLEY IRBY UNIT: [id number] ADM DATE: 11/28/18 AGE: 68 : 49 SEX: F ROOM/BED: D.8571 AUTHOR: YINGDOC PHYSICIAN: REFERRING PHYSICIAN: KENYA DE LA ROSA MD DATE OF SERVICE: 12/09/18 Discharge Plan Patient Name: HAYLEY IRBY Facility: [facility]:[place] : 1950 Planned Disposition: Home Anticipated Discharge Date: 12/09/18 Discharge Date: Expected LOS: 11 Initial Reviewer: [email or web address] Initial Review Date: 11/29/2018 Generated: 12/09/18 2:23 pm Comments DCP- Discharge Planning Updated by [email or web address]: Chaka Joyce on 12/09/18 12:[address] Patient Name: HAYLEY IRBY Admission Status: ER Accout number: [id number] Admission Date: 11-28-2018 : 1950 Admission Diagnosis:PNEUMOTHORAX, UNSPECIFIED Attending: KENYA DE LA ROSA Current LOS: 11 Anticipated DC Date: 12-09-2018 Planned Disposition: Home Primary Insurance: MEDICARE A & B PLANNED EXTERNAL PROVIDER: SILVINA Discharge Planning Comments: CM MET WITH PT IN ROOM TO DISCUSS DISCHARGE NEEDS AND PLANNING. CM DISCUSSED AVAILABILITY OF HOME HEALTH, REHAB SERVICES AND MEDICAL EQUIPMENT. PT WOULD LIKE OXYGEN AND NEBULIZER ORDERED, DENIES FURTHER DISCHARGE NEEDS. SPOUSE TO TRANSPORT HOME AT DISCHARGE. IMPORTANT MESSAGE FROM MEDICARE PROVIDED AND EXPLAINED. PROVIDER LISTING GIVEN FOR MEDICAL EQUIPMENT, PT HAS NO PREFERENCE ON PROVIDER, CHOICE SIGNED. CM CALLED [facility], , SPOKE TO ARASH AND PROVIDED REFERRAL INFORMATION FOR OXYGEN AND NEBULIZER. CM FAXED REFERRAL TO [facility], . ARASH ADVISED THEY WILL DELIVER PORTABLE OXYGEN TO HOSPITAL TODAY AND WILL ARRANGE HOME OXYGEN AND NEBULIZER WHEN PT ARRIVES AT HOME AFTER DISCHARGE. HEAD GIRLS GOLF COACH NURSE NOTIFIED. Instructor Dancing: Chaka Joyce DCP- Discharge Planning Updated by [id number]: Donya Lester on 11/29/18 7:[address] Patient Name: HAYLEY IRBY Admission Status: ER Accout number: [id number] Admission Date: 11-28-2018 : 1950 Admission Diagnosis:PNEUMOTHORAX, UNSPECIFIED Attending: KENYA DE LA ROSA Current LOS: 1 Anticipated DC Date: Planned Disposition: Home Primary Insurance: MEDICARE A & B Discharge Planning Comments: CM met with patient at bedside after explaining CM role and obtaining verbal consent. Patient lives at home with her Marcella where she is independent with her care and plans to return there upon discharge. Patient feels this would be a safe discharge. CM discussed availability / needs of home health and medical equipment. Patient denies any discharge needs at this time. Patient states she will have her family drive her home upon discharge. CM will continue to follow and assist as needed with discharge planning / needs. Instructor Dancing: Donya WEINBERG - Discharge Planning Initial Assessment Updated by [email or web address]: Donya Lester on 11/29/18 8:51 pm * Is the patient Alert and Oriented? Yes * How many steps to enter\exit or inside your home? * PCP CHRIS * [facility] * Preadmission Environment Home with Family * ADLs Independent * Other Equipment WALKER, CANE, CRUTCHES, BSC * List name and contact numbers for known caregivers / representatives who currently or will assist patient after discharge: MARCELLA IRBY - [facility]- [phone] * Verbal permission to speak to the caregivers and representatives has been obtained from the patient. Yes * Community resources currently utilized None * Additional services required to return to the preadmission environment? No * Can the patient safely return to the preadmission environment? Yes * Has this patient been hospitalized within the prior 30 days at any hospital? No External Providers External Provider: [facility] Next Contact Date: 12/09/2018 Service Request Date: Service Type: Resolution: Reviewer: Comments: Coverage Notice Reviewer: [email or web address] Layla Joyce Notice Issued Date-Time: 12/09/2018 12:05 Notice Type: Patient Choice Letter Notice Delivered To: Patient Relationship to Patient: Drywaller Name: Delivery Method: HAND - Hand Delivered Diamond Days: Prior Verbal Notification: Recipient Understood Notice: Yes Recipient Signature: Yes Med Rec Note Co-signed by Attending: Coverage Notice Comment: NO MEDICAL EQUIPMENT PROVIDER PREFERENCE Reviewer: [email or web address] Layla Joyce Notice Issued Date-Time: 12/09/2018 12:05 Notice Type: IM Discharge Notice Notice Delivered To: Patient Relationship to Patient: Drywaller Name: Delivery Method: HAND - Hand Delivered Diamond Days: Prior Verbal Notification: Recipient Understood Notice: Yes Recipient Signature: Yes Med Rec Note Co-signed by Attending: Coverage Notice Comment: Last DP export: 12/09/18 12:15 pm Patient Name: HAYLEY IRBY Page [phone] at 1324 All edits/amendments must be made on the electronic document DICTATION DATE: 12/09/18 1323 PREPARATION OPERATOR: JUNG 12/09/18 1323 RPT#: [id number] DC DATE: STATUS: ADM IN [facility] [address] [place] [address] END OF REPORT
--- NOTE | 2018-12-09 13:33 | MORECARE ---
CASE MANAGEMENT DISCHARGE SUMMARY PATIENT: HAYLEY IRBY UNIT: [id number] ADM DATE: 11/28/18 AGE: 68 : [birth year] SEX: F ROOM/BED: D.0971 AUTHOR: SB HE PHYSICIAN: REFERRING PHYSICIAN: KENYA DE LA ROSA MD DATE OF SERVICE: 12/09/18 Discharge Plan Patient Name: HAYLEY IRBY Facility: [facility]:[place] : 1950 Planned Disposition: Home Anticipated Discharge Date: 12/09/18 Discharge Date: Expected LOS: 11 Initial Reviewer: [id number] Initial Review Date: 11/29/2018 Generated: 12/09/18 2:32 pm Comments DCP- Discharge Planning Updated by [id number]: Chaka Joyce on 12/09/18 12:[address] Patient Name: HAYLEY IRBY Encounter No: [id number] : 1950 Primary Insurance: MEDICARE A & B Anticipated DC Date: 12-09-2018 Planned Disposition: Home External Planned Provider: [facility] DCP follow-up note: CM RECEIVED CALL FROM [facility], THEY DO NOT HAVE NEBULIZERS, THEY ARE ON ORDER. CM SPOKE TO PT AND SPOUSE IN ROOM, PT WOULD LIKE TO HAVE EQUIPMENT FROM ONE COMPANY IF POSSIBLE. CM CALLED [facility], , SPOKE TO SALO AND PROVIDED REFERRAL INFORMATION. THEY HAVE NEBULIZER AND OXYGEN IN STOCK. CM FAXED REFERRAL TO [facility], . SALO ADVISED THEY WILL DELIVER PORTABLE OXYGEN TO HOSPITAL TODAY AND WILL ARRANGE HOME OXYGEN AND NEBULIXER DELIVERY WHEN PT ARRIVES AT HOME AFTER DISCHARGE. PT NOTIFIED, DENIES FURTHER NEEDS, SPOUSE TO TRANSPORT HOME TODAY. Chaka Joyce CASE HINA DCP- Discharge Planning Updated by [id number]: Chaka Joyce on 12/09/18 12:[address] Patient Name: HAYLEY IRBY Admission Status: ER Accout number: [id number] Admission Date: 11-28-2018 : 1950 Admission Diagnosis:PNEUMOTHORAX, UNSPECIFIED Attending: KENYA DE LA ROSA Current LOS: 11 Anticipated DC Date: 12-09-2018 Planned Disposition: Home Primary Insurance: MEDICARE A & B PLANNED EXTERNAL PROVIDER: [facility] Discharge Planning Comments: CM MET WITH PT IN ROOM TO DISCUSS DISCHARGE NEEDS AND PLANNING. CM DISCUSSED AVAILABILITY OF HOME HEALTH, REHAB SERVICES AND MEDICAL EQUIPMENT. PT WOULD LIKE OXYGEN AND NEBULIZER ORDERED, DENIES FURTHER DISCHARGE NEEDS. SPOUSE TO TRANSPORT HOME AT DISCHARGE. IMPORTANT MESSAGE FROM [employer] PROVIDED AND EXPLAINED. PROVIDER LISTING GIVEN FOR MEDICAL EQUIPMENT, PT HAS NO PREFERENCE ON PROVIDER, CHOICE SIGNED. CM CALLED [facility], , SPOKE TO ARASH AND PROVIDED REFERRAL INFORMATION FOR OXYGEN AND NEBULIZER. CM FAXED REFERRAL TO [facility], . ARASH ADVISED THEY WILL DELIVER PORTABLE OXYGEN TO HOSPITAL TODAY AND WILL ARRANGE HOME OXYGEN AND NEBULIZER WHEN PT ARRIVES AT HOME AFTER DISCHARGE. CRUSHER PLANT OPERATOR NURSE NOTIFIED. Rock Contractor: Chaka Joyce DCP- Discharge Planning Updated by [id number]: Donya Lester on 11/29/18 7:[address] Patient Name: HAYLEY IRBY Admission Status: ER Accout number: [id number] Admission Date: 11-28-2018 : 1950 Admission Diagnosis:PNEUMOTHORAX, UNSPECIFIED Attending: KENYA DE LA ROSA Current LOS: 1 Anticipated DC Date: Planned Disposition: Home Primary Insurance: MEDICARE A & B Discharge Planning Comments: CM met with patient at bedside after explaining CM role and obtaining verbal consent. Patient lives at home with her Marcella where she is independent with her care and plans to return there upon discharge. Patient feels this would be a safe discharge. CM discussed availability / needs of home health and medical equipment. Patient denies any discharge needs at this time. Patient states she will have her family drive her home upon discharge. CM will continue to follow and assist as needed with discharge planning / needs. Rock Contractor: Donya GROSSMANA - Discharge Planning Initial Assessment Updated by [id number]: Donya Lester on 11/29/18 8:51 pm * Is the patient Alert and Oriented? Yes * How many steps to enter\exit or inside your home? * PCP CHRIS * [facility] * Preadmission Environment Home with Family * ADLs Independent * Other Equipment WALKER, CANE, CRUTCHES, BSC * List name and contact numbers for known caregivers / representatives who currently or will assist patient after discharge: MARCELLA IRBY - SPOUSE- [phone] * Verbal permission to speak to the caregivers and representatives has been obtained from the patient. Yes * Community resources currently utilized None * Additional services required to return to the preadmission environment? No * Can the patient safely return to the preadmission environment? Yes * Has this patient been hospitalized within the prior 30 days at any hospital? No Coverage Notice Reviewer: [id number] Joyce Notice Issued Date-Time: 12/09/2018 12:05 Notice Type: Patient Choice Letter Notice Delivered To: Patient Relationship to Patient: Audio/Visual Manager Name: Delivery Method: HAND - Hand Delivered Diamond Days: Prior Verbal Notification: Recipient Understood Notice: Yes Recipient Signature: Yes Med Rec Note Co-signed by Attending: Coverage Notice Comment: NO MEDICAL EQUIPMENT PROVIDER PREFERENCE Reviewer: [id number] Joyce Notice Issued Date-Time: 12/09/2018 12:05 Notice Type: IM Discharge Notice Notice Delivered To: Patient Relationship to Patient: Audio/Visual Manager Name: Delivery Method: HAND - Hand Delivered Diamond Days: Prior Verbal Notification: Recipient Understood Notice: Yes Recipient Signature: Yes Med Rec Note Co-signed by Attending: Coverage Notice Comment: Last DP export: 12/09/18 12:24 pm Patient Name: HAYLEY IRBY Page [id number] at 1333 All edits/amendments must be made on the electronic document DICTATION DATE: 12/09/18 1332 ROOM ATTENDANT: JUNG 12/09/18 1332 RPT#: [id number] DC DATE: STATUS: ADM IN [facility] [address] [place] [address] END OF REPORT
--- NOTE | 2018-12-09 14:28 | NUR ---
SPOKE WITH DR. ISLAS, HE STATED THE PT COULD LEAVE. INFORMED DIGNA DAVIS WHO WILL LET DR. DE LA ROSA KNOW.
[2018-12-09] MEDS ORDERED: IPRAT-ALBUT 0.5-3 ML UPD (14:39)
[2018-12-09] MEDS ORDERED: LEVOFLOXACIN500 MG PO (14:39)
[2018-12-09] MEDS ORDERED: PROTONIX40 MG PO (14:40)
[2018-12-09] MEDS ORDERED: MUCINEX DM ER1 EAC1 PO (14:40)
[2018-12-09] MEDS ORDERED: TESSALON PERLE100 MG PO (14:40)
[2018-12-09 16:10] VITALS: BP 140/73
--- NOTE | 2018-12-10 07:41 | MORECARE ---
CASE MANAGEMENT DISCHARGE SUMMARY PATIENT: HAYLEY IRBY UNIT: [id number] ADM DATE: 11/28/18 AGE: 68 : 49 SEX: F ROOM/BED: D.0121 AUTHOR: SB HE PHYSICIAN: REFERRING PHYSICIAN: KENYA DE LA ROSA MD DATE OF SERVICE: 12/10/18 Discharge Plan Patient Name: HAYLEY IRBY Facility: [facility]:[place] : 1950 Planned Disposition: Home Anticipated Discharge Date: 12/09/18 Discharge Date: 12/09/2018 Expected LOS: 11 Initial Reviewer: [id number] Initial Review Date: 11/29/2018 Generated: 12/10/18 8:40 am Comments DCP- Discharge Planning Updated by [id number]: Chaka Joyce on 12/09/18 12:[address] Patient Name: HAYLEY IRBY Encounter No: [id number] : 1950 Primary Insurance: MEDICARE A & B Anticipated DC Date: 12-09-2018 Planned Disposition: Home External Planned Provider: [facility] DCP follow-up note: CM RECEIVED CALL FROM SONIA OF [facility], THEY DO NOT HAVE NEBULIZERS, THEY ARE ON ORDER. CM SPOKE TO PT AND SPOUSE IN ROOM, PT WOULD LIKE TO HAVE EQUIPMENT FROM ONE COMPANY IF POSSIBLE. CM CALLED [facility], , SPOKE TO SALO AND PROVIDED REFERRAL INFORMATION. THEY HAVE NEBULIZER AND OXYGEN IN STOCK. CM FAXED REFERRAL TO [facility], . SALO ADVISED THEY WILL DELIVER PORTABLE OXYGEN TO HOSPITAL TODAY AND WILL ARRANGE HOME OXYGEN AND NEBULIXER DELIVERY WHEN PT ARRIVES AT HOME AFTER DISCHARGE. PT NOTIFIED, DENIES FURTHER NEEDS, SPOUSE TO TRANSPORT HOME TODAY. KALEIGH Sal DCP- Discharge Planning Updated by [id number]: Chaka Joyce on 12/09/18 12:[address] Patient Name: HAYLEY IRBY Admission Status: ER Accout number: [id number] Admission Date: 11-28-2018 : 1950 Admission Diagnosis:PNEUMOTHORAX, UNSPECIFIED Attending: KENYA DE LA ROSA Current LOS: 11 Anticipated DC Date: 12-09-2018 Planned Disposition: Home Primary Insurance: MEDICARE A & B PLANNED EXTERNAL PROVIDER: [facility] Discharge Planning Comments: CM MET WITH PT IN ROOM TO DISCUSS DISCHARGE NEEDS AND PLANNING. CM DISCUSSED AVAILABILITY OF HOME HEALTH, REHAB SERVICES AND MEDICAL EQUIPMENT. PT WOULD LIKE OXYGEN AND NEBULIZER ORDERED, DENIES FURTHER DISCHARGE NEEDS. SPOUSE TO TRANSPORT HOME AT DISCHARGE. IMPORTANT MESSAGE FROM [employer] PROVIDED AND EXPLAINED. PROVIDER LISTING GIVEN FOR MEDICAL EQUIPMENT, PT HAS NO PREFERENCE ON PROVIDER, CHOICE SIGNED. CM CALLED [facility], , SPOKE TO ARASH AND PROVIDED REFERRAL INFORMATION FOR OXYGEN AND NEBULIZER. CM FAXED REFERRAL TO [facility], . ARASH ADVISED THEY WILL DELIVER PORTABLE OXYGEN TO HOSPITAL TODAY AND WILL ARRANGE HOME OXYGEN AND NEBULIZER WHEN PT ARRIVES AT HOME AFTER DISCHARGE. STITCH SEPARATOR NURSE NOTIFIED. Parts Counterman: Chaka Joyce DCP- Discharge Planning Updated by [id number]: Donya Lester on 11/29/18 7:[address] Patient Name: HAYLEY IRBY Admission Status: ER Accout number: [id number] Admission Date: 11-28-2018 : 1950 Admission Diagnosis:PNEUMOTHORAX, UNSPECIFIED Attending: KENYA DE LA ROSA Current LOS: 1 Anticipated DC Date: Planned Disposition: Home Primary Insurance: MEDICARE A & B Discharge Planning Comments: CM met with patient at bedside after explaining CM role and obtaining verbal consent. Patient lives at home with her Marcella where she is independent with her care and plans to return there upon discharge. Patient feels this would be a safe discharge. CM discussed availability / needs of home health and medical equipment. Patient denies any discharge needs at this time. Patient states she will have her family drive her home upon discharge. CM will continue to follow and assist as needed with discharge planning / needs. Parts Counterman: Donya Lester DCPIA - Discharge Planning Initial Assessment Updated by [id number]: Donya Lester on 11/29/18 8:51 pm * Is the patient Alert and Oriented? Yes * How many steps to enter\exit or inside your home? * PCP CHRIS * [facility] [place] * Preadmission Environment Home with Family * ADLs Independent * Other Equipment WALKER, CANE, CRUTCHES, BSC * List name and contact numbers for known caregivers / representatives who currently or will assist patient after discharge: MARCELLA IRBY - [facility]- [phone] * Verbal permission to speak to the caregivers and representatives has been obtained from the patient. Yes * Community resources currently utilized None * Additional services required to return to the preadmission environment? No * Can the patient safely return to the preadmission environment? Yes * Has this patient been hospitalized within the prior 30 days at any hospital? No Coverage Notice Reviewer: [id number] Joyce Notice Issued Date-Time: 12/09/2018 12:05 Notice Type: Patient Choice Letter Notice Delivered To: Patient Relationship to Patient: Tan Room Supervisor Name: Delivery Method: HAND - Hand Delivered Diamond Days: Prior Verbal Notification: Recipient Understood Notice: Yes Recipient Signature: Yes Med Rec Note Co-signed by Attending: Coverage Notice Comment: NO MEDICAL EQUIPMENT PROVIDER PREFERENCE Reviewer: [id number] Joyce Notice Issued Date-Time: 12/09/2018 12:05 Notice Type: IM Discharge Notice Notice Delivered To: Patient Relationship to Patient: Tan Room Supervisor Name: Delivery Method: HAND - Hand Delivered Diamond Days: Prior Verbal Notification: Recipient Understood Notice: Yes Recipient Signature: Yes Med Rec Note Co-signed by Attending: Coverage Notice Comment: Last DP export: 12/09/18 12:33 pm Patient Name: HAYLEY IRBY Page [phone] at 0741 All edits/amendments must be made on the electronic document DICTATION DATE: 12/10/18739 FRONT WINDOW CASHIER: JUNG 12/10/18739 RPT#: [id number] DC DATE:12/09/18 STATUS: DIS IN [facility] [address] [place] [address] END OF REPORT
== END 2018-12-09 21:31 | disposition home or self-care (01) | DRG 163 ==
LOC: D.ER 14:55 → D.CVICU 19:00 → D.ICU 19:00 → D.MS 19:00 → D.CVICU 12-05 14:58 → D.M2 12-08 16:17 → D.SDCHOLD 12-09 11:08 → D.M2 12-09 11:13
PROVIDERS: Family Medicine; General Practice; Internal Medicine Pulmonary Disease; Thoracic Surgery (Cardiothoracic Vascular Surgery); ADMIT Internal Medicine Nephrology; ATTEND Internal Medicine Nephrology
PROC: 0W9930Z Drainage of Right Pleural Cavity with Drainage Device, Percutaneous Approach (ICD-10-PCS; principal; 2018-11-28)
PROC: 0BJ08ZZ Inspection of Tracheobronchial Tree, Via Natural or Artificial Opening Endoscopic (ICD-10-PCS; 2018-12-05)
PROC: 0BTD0ZZ Resection of Right Middle Lung Lobe, Open Approach (ICD-10-PCS; 2018-12-05 15:15)
DX: J93.9 Pneumothorax, unspecified (principal); J96.02 Acute respiratory failure with hypercapnia; J15.6 Pneumonia due to other Gram-negative bacteria; J13 Pneumonia due to Streptococcus pneumoniae; J96.01 Acute respiratory failure with hypoxia; J98.11 Atelectasis; T79.7XXA Traumatic subcutaneous emphysema, initial encounter; E11.9 Type 2 diabetes mellitus without complications; I10 Essential (primary) hypertension; F17.200 Nicotine dependence, unspecified, uncomplicated; G43.909 Migraine, unspecified, not intractable, without status migrainosus; D64.9 Anemia, unspecified; G47.33 Obstructive sleep apnea (adult) (pediatric); Z91.19 Patient's noncompliance with other medical treatment and regimen

== ENCOUNTER → 2018-12-11 12:37 | Outpatient (CLI) | payer MEDICARE, OTHER | END | disposition home or self-care (01) | LOC: D.RAD 10:45 | PROVIDERS: ATTEND Thoracic Surgery (Cardiothoracic Vascular Surgery) | DX: J93.9 Pneumothorax, unspecified (principal) ==

== ENCOUNTER → 2019-03-14 08:57 | Outpatient (CLI) | payer MEDICARE, OTHER | END | disposition home or self-care (01) | LOC: D.RAD 08:57 | PROVIDERS: ATTEND Internal Medicine Pulmonary Disease | DX: R06.00 Dyspnea, unspecified (principal) ==